=== PATIENT | male | born 1940 | race Caucasian/White ===

== ENCOUNTER 2016-11-08 06:21 | Day surgery (SDC) | payer MEDICARE, OTHER ==
--- NOTE | ~2016-11-08 | OP ---
Record Of Operation [facility] [address] [place]. [address] NAME: SARAH CHEN : 42 STATUS : [facility] PAT#: [id number] AGE: 75 ADM/REG DATE : 11/08/16 MR#: [id number] REPORT SERV DATE: 11/08/16 DICTATED BY: OUMOU BEST DATE: 11/08/16 REPORT STATUS : Draft TRANSCRIBED BY: MODL DATE: 11/08/16 DATE OF PROCEDURE: 11/08/2016 PROCEDURE: Bronchoscopy with airway inspection, endobronchial ultrasound, lymph node sampling, transbronchial biopsies, navigational bronchoscopy with transbronchial biopsies and transbronchial needle aspiration. INDICATION FOR PROCEDURE: The patient is a 75-year-old male with a past medical history of left lower lobe bronchiectasis and has had pneumonia. He also has underlying COPD with tobacco use. CT scan showed a new lung mass in the left lower lobe which was not resolved with antibiotics and concern of a lung squamous or adenocarcinoma was noted versus acute inflammation and pneumonia. PREOPERATIVE DIAGNOSIS: Left lower lobe lung mass. POSTOPERATIVE DIAGNOSIS: Left lower lobe lung mass. PROCEDURE NOTE: The patient was brought to the bronchoscopy suite, Anesthesia provided sedation, and the patient was intubated with an 8.5 tube. We started out with the lidocaine down the right mainstem and left mainstem. After the patient was anesthetized with local anesthesia, we then conducted an airway examination. The patient had copious amount of sputum in the left lower lobe. We conducted a bronchoalveolar lavage of the left lower lobe and obtained heavy secretions. Otherwise, there was no other endobronchial abnormality. We then switched to the endobronchial ultrasound. Conducting a mediastinal survey, the patient had lymphadenopathy at ATS station 7 and ATS station 4L. We conducted three passes via endobronchial ultrasound through a transbronchial needle aspiration technique on ATS station 7 and three passes on 4L. We then switched to navigational bronchoscopy. We were able to obtain catheter access to the left lower lobe, which is confirmed not only by radial ultrasound but also by fluoroscopy. We conducted a fine-needle aspirations x2 of the left lower lobe mass, transbronchial biopsies x6 of the left lower lobe mass, and one micro brush. We concluded the procedure with a mini BAL, which is going to be separate from the initial BAL of the left lower lobe. There was no significant bleeding or pneumothorax noted on fluoroscopy. OUTCOME: Successful bronchoscopy for the above-named procedure. IMPRESSION: Most likely, this is an inflammatory infectious etiology. At this moment in time, we will prescribed antibiotics and have the patient follow up in one month with CT scan, follow up cytology in case there is any neoplastic process. HFQ/TORRIE Oumou Best MD Record Of [address] [address] NAME: SARAH CHEN : 42 STATUS : [place] [facility] PAT#: [id number] AGE: 75 ADM/REG DATE : 11/08/16 MR#: [id number] REPORT SERV DATE: 11/08/16 DICTATED BY: OUMOU BEST DATE: 11/08/16 REPORT STATUS : Draft TRANSCRIBED BY: MODL DATE: 11/08/16 / [id number] CC: MD Wilfrid Forrest D.O. F.A.C.P.
[~2016-11-08 06:21] MED LIST: ASAB PO; C5 PO; DIGITEK0.25 MG PO; DIOV80 PO; DIOVAN40 MG PO; FISH-EPA1000 MG PO; KLOR-CON M2020 MEQ PO; L40 PO; LOP50 PO; PREV30 PO; SUPER B-C OR; SUPER B-C PO
[2016-11-08 06:48] LABS: BASOPHILS 0.7 %; BASOPHILS ABSOLUTE 0.05 10/3/uL (0.0-0.16); EOSINOPHILS 2.2 %; EOSINOPHILS ABSOLUTE 0.15 10/3/uL (0.0-0.53); HEMATOCRIT 37.9 % (40.0-51.0); HEMOGLOBIN 12.2 g/dL (13.6-17.8); IMMATURE GRANULOCYTES 0.1 %; IMMATURE GRANULOCYTES ABSOLUTE 0.01 10/3/uL (0.0-0.11); MEAN CORPUS HGB CONC 32.2 g/dL (32.0-36.0); MEAN PLATELET VOLUME 9.3 fL (9.2-13.0); MONOCYTES 8.2 %; MONOCYTES ABSOLUTE 0.55 10/3/uL (0.21-1.20); NEUTROPHILS 55.8 %; NEUTROPHILS ABSOLUTE 3.71 10/3/uL (2.02-8.40); PLATELET COUNT 194 10/3/uL (150-400); RED CELL COUNT 4.21 10/6/uL (4.7-6.1); WHITE BLOOD CELLS 6.7 10/3/uL (4.5-10.5)
[2016-11-08 06:49] LABS: MANUAL DIFF NO %
[2016-11-08 06:56] LABS: INTERNATIONAL NORMAL RATI 1.2 UNITS (-); PARTIAL THROMBO TIME 29.8 SEC (22.5-37.2)
[2016-11-08 06:57] LABS: PROTIME (NOT ORD) 15.2 SEC (12.0-14.5)
[2016-11-08 07:01] LABS: CALCIUM, SERUM 8.9 MG/DL (8.5-10.4); CHLORIDE, SERUM 106 MMOL/L (96-112); CO2 (CARBON DIOXIDE) 30 MMOL/L (24-34); CREATININE 1.12 MG/DL (0.70-1.30); GFR AFRICAN AMERICAN 75 ML/MIN (>=60); GFR NON AFRICAN AMERICAN 64 ML/MIN (>=60); GLUCOSE, SERUM 88 MG/DL (60-99); POTASSIUM, SERUM 4.5 MMOL/L (3.5-5.3); SODIUM, SERUM 142 MMOL/L (135-148)
[2016-11-08 07:03] LABS: BUN (BLOOD UREA NITROGEN) 26 MG/DL (6-23)
[2016-11-08 12:54] LABS: BD FL LYMPH (NOT ORD) 5 %; BF BASO (NOT OF) 0 %; BF LARGE MONONUCLEAR 0 %; BODY FLUID EOS (NOT ORD) 0 %; BODY FLUID RBC (NOT ORD) 7000 /MM3; BODY FLUID SEG (NOT ORD) 95 %
[2016-11-08 12:55] LABS: BD FL LYMPH (NOT ORD) 2 %; BD FL SOURCE (NOT ORD) BAL LLL; BF BASO (NOT OF) 0 %; BF LARGE MONONUCLEAR 11 %; BF TOTAL CELL CT (NOT ORD 423 /MM3; BODY FLUID EOS (NOT ORD) 1 %; BODY FLUID RBC (NOT ORD) 142000 /MM3; BODY FLUID SEG (NOT ORD) 86 %
[2016-11-08 12:56] LABS: BD FL SOURCE (NOT ORD) BAL LLL MASS
[2016-11-08 12:57] LABS: BF TOTAL CELL CT (NOT ORD 8557 /MM3
== END 2016-11-08 23:59 | disposition home or self-care (01) ==
LOC: DMU 06:21
PROVIDERS: Anesthesiology; Internal Medicine Critical Care Medicine
PROC: 0BBB8ZX Excision of Left Lower Lobe Bronchus, Via Natural or Artificial Opening Endoscopic, Diagnostic (ICD-10-PCS; principal; 2016-11-08 08:00)
PROC: 07B74ZX Excision of Thorax Lymphatic, Percutaneous Endoscopic Approach, Diagnostic (ICD-10-PCS; 2016-11-08 08:00)
PROC: 0B9B8ZX Drainage of Left Lower Lobe Bronchus, Via Natural or Artificial Opening Endoscopic, Diagnostic (ICD-10-PCS; 2016-11-08 08:00)
DX: J18.9 Pneumonia, unspecified organism (principal); J47.9 Bronchiectasis, uncomplicated; I11.0 Hypertensive heart disease with heart failure; I50.9 Heart failure, unspecified; I48.91 Unspecified atrial fibrillation; Z91.040 Latex allergy status; Z79.82 Long term (current) use of aspirin; Z79.01 Long term (current) use of anticoagulants; Z79.899 Other long term (current) drug therapy; H91.90 Unspecified hearing loss, unspecified ear; F17.210 Nicotine dependence, cigarettes, uncomplicated; Z90.49 Acquired absence of other specified parts of digestive tract; K21.9 Gastro-esophageal reflux disease without esophagitis; Z86.010 Personal history of colon polyps; Z98.890 Other specified postprocedural states; Z96.1 Presence of intraocular lens; Z98.49 Cataract extraction status, unspecified eye
CPT/HCPCS: 71010; 80048; 85025; 85610; 85730; 87015; 87070; 87101; 87102; 87116; 87205; 88112; 88172; 88173; 88305; 88333; 89051; 93005; A9270-GY; C1725; C1769; J0330; J2370; J2405; J2710; J3010